=== PATIENT | female | born 1990 | race Caucasian/White ===

== ENCOUNTER 2018-02-19 12:24 | Outpatient (CLI) | payer MEDICAID ==
[2018-02-19 13:09] LABS: ADD UMIC NO; UR ASCORBIC ACID NEGATIVE (NEGATIVE); UR BILIRUBIN (Dip) NEGATIVE (NEGATIVE); UR BLOOD (Dip) NEGATIVE (NEGATIVE); UR CLARITY CLEAR (CLEAR); UR COLOR YELLOW (YELLOW); UR GLUCOSE (Dip) NEGATIVE (NEGATIVE); UR KETONES (Dip) NEGATIVE (NEGATIVE); UR LEUKOCYTE ESTERASE (Dip) NEGATIVE Leu/ul (NEGATIVE); UR NITRITE (Dip) NEGATIVE (NEGATIVE); UR SPECIFIC GRAVITY (Dip) 1.015 (1.003-1.030); UR TOTAL PROTEIN (Dip) NEGATIVE (NEGATIVE); UR UROBILINOGEN (Dip) NEGATIVE (NEGATIVE)
== END 2018-02-19 16:39 | disposition home or self-care (01) ==
LOC: OBT 12:24 → L-D 12:25 → OBT 16:39
DX: O26.893 Other specified pregnancy related conditions, third trimester (principal); Z3A.33 33 weeks gestation of pregnancy; R10.2 Pelvic and perineal pain
CPT/HCPCS: 76818; 81003

== ENCOUNTER 2018-04-07 01:50 | Inpatient (IN) | payer MEDICAID ==
[2018-04-07] MEDS: AMPICILLIN 2 GM/NS (PMX) 100 ML IVPB (02:15)
[2018-04-07 02:24] LABS: ADD MAN DIFF? NO
[2018-04-07 02:26] LABS: BASOPHILS % 0.2 % (0.0-2.0); EOSINOPHILS # 0.2 10^3/ul (0.0-0.5); EOSINOPHILS % 1.4 % (0.0-7.0); HEMATOCRIT 35.1 % (37.0-47.0); HEMOGLOBIN 11.3 g/dl (12.0-16.0); LYMPHOCYTES # 2.5 10^3/ul (0.8-2.9); LYMPHOCYTES % 23.2 % (15.0-51.0); MEAN CORPUSCULAR HGB CONC 32.2 g/dl (32.0-37.0); MONOCYTE # 0.8 10^3/ul (0.3-0.9); NEUTROPHIL # 7.2 10^3/ul (1.6-7.5); NEUTROPHILS % 67.7 % (39.0-77.0); PLATELET COUNT 265 10^3/UL (140-415); RED BLOOD COUNT 4.18 10^6/ul (4.20-5.40)
[2018-04-07 02:26] LABS: WHITE BLOOD COUNT 10.7 10^3/ul (4.8-10.8)
[2018-04-07] MEDS ORDERED: CARBOPROST 250 MCG INJ IM ×2 (02:30→03:00)
[2018-04-07] MEDS ORDERED: LIDOCAINE 1% (MPF) 30 ML INJ INJ (02:30)
[2018-04-07] MEDS ORDERED: MISOPROSTOL 200 MCG TAB PR ×2 (02:30→03:00)
[2018-04-07] MEDS ORDERED: BUTORPHANOL 2 MG INJ IV (02:30)
[2018-04-07] MEDS ORDERED: OXYCODONE/ASPIRIN (4.88/325) TAB PO (02:30)
[2018-04-07] MEDS ORDERED: AMPICILLIN 2 GM/NS (PMX) 100 ML IV (02:30)
[2018-04-07] MEDS ORDERED: OXYTOCIN 30 UNITS/LR 500 ML IV ×4 (02:30→03:00)
[2018-04-07] MEDS ORDERED: METHYLERGONOVINE 0.2 MG INJ IM ×2 (02:30→03:00)
[2018-04-07] MEDS ORDERED: IBUPROFEN 600 MG TAB PO (02:30)
[2018-04-07] MEDS ORDERED: LACTATED RINGER'S 1,000 ML IV* (02:30)
[2018-04-07 02:47] LABS: INR 0.83; PARTIAL THROMBOPLASTIN TIME 29.2 Sec (23.0-35.0); PROTIME 11.5 Sec (11.9-14.9); PT RATIO 0.9
[2018-04-07] MEDS ORDERED: ACETAMINOPHEN 325 MG TAB PO (03:00)
[2018-04-07] MEDS ORDERED: LANOLIN 7 GM TUBE TOP (03:00)
[2018-04-07] MEDS ORDERED: ONDANSETRON 4 MG INJ IV (03:00)
[2018-04-07] MEDS ORDERED: DIPHENHYDRAMINE 25 MG CAP PO (03:00)
[2018-04-07] MEDS ORDERED: NACL 0.9% 3 ML SYG IV (03:00)
[2018-04-07] MEDS ORDERED: ZOLPIDEM 5 MG TAB PO (03:00)
[2018-04-07] MEDS ORDERED: HYDROCODONE/APAP (5/325) TAB PO (03:00)
[2018-04-07] MEDS ORDERED: WITCH HAZEL/GLYCERIN PAD PR (03:00)
[2018-04-07] MEDS: IBUPROFEN 600 MG TAB PO ×5 (03:10→23:30)
[2018-04-07] MEDS: OXYTOCIN 30 UNITS/LR 500 ML IV ×4 (03:15→07:04)
[2018-04-07 03:20] LABS: HEPATITIS B SURFACE ANTIGEN NEGATIVE (NEGATIVE)
[2018-04-07] MEDS ORDERED: AMPICILLIN 1 GM/NS (PMX) 50 ML IV (06:30)
[2018-04-07 08:58] LABS: HEMOGLOBIN 9.6 g/dl (12.0-16.0)
[2018-04-07] MEDS: SENNA/DOCUSATE NA (8.6MG/50MG) TAB PO ×2 (11:30→22:03)
[2018-04-07 21:32] LABS: RAPID PLASMA REAGIN NONREACTIVE (NR)
[2018-04-08] MEDS: IBUPROFEN 600 MG TAB PO ×3 (05:16→18:23)
[2018-04-08 07:23] LABS: ADD MAN DIFF? NO
[2018-04-08 07:31] LABS: WHITE BLOOD COUNT 8.6 10^3/ul (4.8-10.8)
[2018-04-08 07:31] LABS: BASOPHILS % 0.1 % (0.0-2.0); EOSINOPHILS # 0.2 10^3/ul (0.0-0.5); EOSINOPHILS % 2.7 % (0.0-7.0); HEMATOCRIT 29.4 % (37.0-47.0); HEMOGLOBIN 9.3 g/dl (12.0-16.0); LYMPHOCYTES % 34.7 % (15.0-51.0); MEAN CORPUSCULAR HEMOGLOBIN 27.5 pg (29.0-33.0); MEAN CORPUSCULAR HGB CONC 31.6 g/dl (32.0-37.0); MEAN PLATELET VOLUME 10.2 fl (7.4-10.4); MONOCYTE # 0.7 10^3/ul (0.3-0.9); MONOCYTES % 7.6 % (0.0-11.0); NEUTROPHIL # 4.6 10^3/ul (1.6-7.5); PLATELET COUNT 207 10^3/UL (140-415); RED BLOOD COUNT 3.38 10^6/ul (4.20-5.40); RED CELL DISTRIBUTION WIDTH 15.5 % (11.5-14.5)
[2018-04-08] MEDS: SENNA/DOCUSATE NA (8.6MG/50MG) TAB PO ×2 (09:39→22:11)
[2018-04-09] MEDS: IBUPROFEN 600 MG TAB PO ×3 (00:19→12:51)
[2018-04-09] MEDS: SENNA/DOCUSATE NA (8.6MG/50MG) TAB PO (09:35)
== END 2018-04-09 15:40 | disposition home or self-care (01) | DRG 807 ==
LOC: OBT 01:50 → L-D 01:50 → OBT 02:05 → L-D 02:05 → PP1 04:58
PROVIDERS: Obstetrics & Gynecology
PROC: 10E0XZZ Delivery of Products of Conception, External Approach (ICD-10-PCS; principal; 2018-04-07)
PROC: 0HQ9XZZ Repair Perineum Skin, External Approach (ICD-10-PCS; 2018-04-07)
DX: O77.0 Labor and delivery complicated by meconium in amniotic fluid (principal); Z37.0 Single live birth; O70.0 First degree perineal laceration during delivery; O34.219 Maternal care for unspecified type scar from previous cesarean delivery; Z3A.40 40 weeks gestation of pregnancy
CPT/HCPCS: 85014; 85018; 85025; 85610; 85730; 86592; 86850; 86900; 86901; 87340